=== PATIENT | female | born 1960 | race African-American/Black ===

== ENCOUNTER 2019-01-15 09:23 | Inpatient (IN) | payer OTHER ==
[2019-01-15 11:14] VITALS: BMI 27.4
--- NOTE | 2019-01-15 11:50 | HP ---
CIWA Score - Admission Criteria [facility]AS Guidelines: Admission for Medically Managed Detox: Requires at least one of the followin. CIWA greater than 12 2. Seizures within the past 24 hours 3. Delirium tremens within the past 24 hours 4. Hallucinations within the past 24 hours 5. Acute intervention needed for co occurring medical disorder 6. Acute intervention needed for co occurring psychiatric disorder 7. Severe withdrawal that cannot be handled at a lower level of care (continued vomiting, continued diarrhea, abnormal vital signs) requiring intravenous medication and/or fluids 8. Admission ROS S - HPI Allergies/Adverse Reactions: Allergies Allergy/AdvReac Type Severity Reaction Status Date / Time No Known Allergies Allergy Verified 01/15/19 10:56 History of Present Illness: pt here requesting rehab from crack cocaine use , first age of use 25 , longest sobriety x 5 years w/ NA/ AA / going [facility] , relapsed beginning of 2017 , current use 300-400 $ /day x 3 days /week , generally , Fridays , Saturdays, goes to [facility] 3 -4 months states not helpful for cessation of cocaine use . Latest use today . tobacco : w/ cocaine use PMHX : htn , scoliosis meds : unknown - see list PSHX : yani 06/16 DUB PSYch : denies . SHx : unemployed . Exam Limitations: No Limitations - Ebola screening Have you traveled outside of the country in the last 21 days: No Have you had contact with anyone from an Ebola affected area: No Do you have a fever: No - Review of Systems Constitutional: No Symptoms Reported EENT: reports: Other (reading glasses) Respiratory: reports: No Symptoms reported Cardiac: reports: No Symptoms Reported GI: reports: No Symptoms Reported : reports: No Symptoms Reported Musculoskeletal: reports: No Symptoms Reported Integumentary: reports: No Symptoms Reported Neuro: reports: Headache Endocrine: reports: No Symptoms Reported Psychiatric: reports: Orientated x3, Agitated Patient History - Smoking Cessation Smoking history: Current every day smoker Have you smoked in the past 12 months: Yes Aproximately how many cigarettes per day: 6 Cigars Per Day: 0 Hx Chewing Tobacco Use: No Initiated information on smoking cessation: No - Substances abused Crack Substance route: Inhalation Frequency: Daily Amount used: $200-300 Age of first use: 25 Date of last use: 01/15/19 Cocaine Substance route: Smoking Frequency: 3-6 times per week Amount used: 10 bags Age of first use: 25 Date of last use: 01/15/19 Family Disease History - Family Disease History Family Disease History: CA: Mother Admission Physical Exam [facility] - Vital Signs Vital Signs: Vital Signs - 24 hr 01/15/19 11:06 Temperature 98 F Pulse Rate 98 H Respiratory 16 Rate Blood Pressure 137/88 - Physical General Appearance: Yes: Mild Distress, Anxious HEENTM: Yes: EOMI, Hearing grossly Normal, Normocephalic, Normal Voice, Other ( partial lower dentures, upper dentures wears wig left supraorbital small lipoma) Respiratory: Yes: Chest Non-Tender, Lungs Clear, No Respiratory Distress, No Accessory Muscle Use Neck: Yes: No masses,lesions,Nodules, Trachea in good position Cardiology: Yes: Regular Rhythm, Regular Rate, S1, S2 Abdominal: Yes: Normal Bowel Sounds, Non Tender, Soft, Protuberent Musculoskeletal: Yes: Gait Steady Extremities: Yes: Normal Range of Motion, Non-Tender Neurological: Yes: Fully Oriented, Alert, Motor Strength 5/5, Normal Mood/Affect Integumentary: Yes: Warm - Diagnostic (1) Cocaine dependence Current Visit: Yes Status: Chronic Qualifiers: Substance use status: uncomplicated Qualified Code(s): F14.20 - Cocaine dependence, uncomplicated Breathalyzer - Breathalyzer Breathalyzer: 0 Urine Drug Screen - Test Device Lot number: [id number] Expiration date: 10/12/20 - Control Is test valid?: Yes - Results Drug screen NEGATIVE: No Urine drug screen results: MARK-Cocaine Inpatient Rehab Admission - Rehab Decision to Admit Inpatient rehab admission?: Yes - Initial Determination Are CD services needed?: Yes Free of communicable disease: Yes Not in need of hospitalization: Yes - Rehab Admission Criteria Previous failed treatment: Yes Poor recovery environment: Yes Comorbidities: No Lacks judgement: Yes Patient is meeting Inpatient Rehab admission criteria:: Yes
[2019-01-15] MEDS ORDERED: MAGNESIUM HYDROX 2400MG/30ML ORAL SUSPENSION 30 ML CUP PO PRN (11:54)
[2019-01-15] MEDS ORDERED: MAGNESIUM CITRATE 300 ML BOTTLE PO PRN (11:54)
[2019-01-15] MEDS ORDERED: ACETAMINOPHEN 325 MG TABLET (FP) PO PRN (11:54)
[2019-01-15] MEDS ORDERED: IBUPROFEN 400 MG TABLET (FP) PO PRN (11:54)
[2019-01-15] MEDS ORDERED: MENTHOL/PHENOL 1 EACH UD MM PRN (11:54)
[2019-01-15] MEDS ORDERED: guaiFENesin 200 MG/10 ML 10 ML UNIT-DOSE CUPS PO PRN (11:54)
[2019-01-15] MEDS ORDERED: MAG HYDROX/AL HYDROX/SIMETH 30 ML UNIT-DOSE CUP PO PRN (11:54)
[2019-01-15] MEDS ORDERED: P-EPHED 60MG/TRIPROLIDI 2.5MG TABLET PO PRN (11:54)
[2019-01-15] MEDS ORDERED: METOPROLOL SU PO SCH (12:15)
[2019-01-15] MEDS ORDERED: HYDROCHLOROTHIAZ PO SCH (12:15)
[2019-01-15] MEDS ORDERED: [UNRECOGNIZED DRUG - OTHER] PO SCH (12:15)
[2019-01-15] MEDS: ASPIRIN 81 MG CHEWABLE TABLETS PO SCH (13:32)
[2019-01-15] MEDS: HYDROCHLOROTHIAZIDE 12.5 MG CAPSULE (FP) PO SCH (13:32)
[2019-01-15] MEDS ORDERED: PT OWN MED DRAWER 7, Y5N ONE (15:08)
[2019-01-15] MEDS: THIAMINE HCL 100 MG TABLET (FP) PO SCH (21:06)
[2019-01-16] MEDS: HYDROCHLOROTHIAZIDE 12.5 MG CAPSULE (FP) PO SCH (10:11)
[2019-01-16] MEDS: PRENATAL VITAMINS W/ FOLIC ACID TABLET (FP) PO SCH (10:11)
[2019-01-16] MEDS: ASPIRIN 81 MG CHEWABLE TABLETS PO SCH (10:11)
[2019-01-16 15:01] LABS: URINE APPEARANCE CLEAR; URINE BILIRUBIN NEGATIVE (NEGATIVE); URINE COLOR YELLOW; URINE GLUCOSE (UA) NEGATIVE (NEGATIVE); URINE KETONE NEGATIVE (NEGATIVE); URINE LEUK ESTERASE NEGATIVE (NEGATIVE); URINE NITRITE NEGATIVE (NEGATIVE); URINE PROTEIN NEGATIVE (NEGATIVE); URINE UROBILINOGEN 0.2 mg/dL (0.2-1.0)
[2019-01-16 15:01] LABS: HEMATOCRIT 38.5 % (32.4-45.2); HEMOGLOBIN 12.4 GM/dL (10.7-15.3); MCH 27.9 pg (25.7-33.7); MCHC 32.2 g/dl (32.0-36.0); MEAN CELL VOLUME 86.6 fl (80-96); MEAN PLT VOLUME 8.2 fl (7.5-11.1); PLATELET COUNT 345 K/MM3 (134-434); RBC 4.45 M/mm3 (3.60-5.2); RDW 15.5 % (11.6-15.6); WHITE BLOOD COUNT 5.1 K/mm3 (4.0-10.0)
[2019-01-16 15:18] LABS: ALBUMIN 3.7 g/dl (3.4-5.0); BILIRUBIN,TOTAL 0.3 mg/dL (0.2-1); BLOOD UREA NITROGEN 23.5 mg/dL (7-18); CALCIUM 9.7 mg/dL (8.5-10.1); CREATININE 1.7 mg/dL (0.55-1.3); TOT PROT 7.1 g/dl (6.4-8.2)
[2019-01-16] MEDS ORDERED: cloNIDine HCL 0.1 MG TABLET PO ONE (15:49)
--- NOTE | 2019-01-16 15:53 | PN ---
S Progress Note (SOAP) Subjective: Patient with elevated BP, states that she has not take her BP medication for several months. Now symptomatic with headache and fatigue Objective: P/E General: appears to slightly distressed HEENT: PERRLA Lung:clear Heart: s1 s2 Neuro: no neurological deficits noted, CN 2-12 intact, hand hyperion essbase developer 5/5 equal bilaterally. 01/16/19 15:51 01/16/19 15:53 Vital Signs Period Temp Pulse Resp BP Sys/Forrester Pulse Ox Last 24 Hr 98.1 F 80-86 18-20 126-170/74-98 Assessment: HTN 01/16/19 15:52 Plan: Clonidine 0.1 stat dose ordered, will continue to monitor.
[2019-01-16] MEDS: THIAMINE HCL 100 MG TABLET (FP) PO SCH (21:44)
[2019-01-17] MEDS: ASPIRIN 81 MG CHEWABLE TABLETS PO SCH (10:05)
[2019-01-17] MEDS: HYDROCHLOROTHIAZIDE 12.5 MG CAPSULE (FP) PO SCH (10:05)
[2019-01-17] MEDS: PRENATAL VITAMINS W/ FOLIC ACID TABLET (FP) PO SCH (10:05)
[2019-01-17] MEDS: THIAMINE HCL 100 MG TABLET (FP) PO SCH (21:36)
[2019-01-18] MEDS ORDERED: PT OWN MED DRAWER 7, Y5N ONE (08:41)
--- NOTE | 2019-01-18 09:05 | PN ---
[facility] Progress Note Note: Vital Signs Temperature 97.7 F 01/18/19 07:09 Pulse Rate 81 01/18/19 07:09 Respiratory Rate 18 01/18/19 07:09 Blood Pressure 150/99 01/18/19 07:09 O2 Sat by Pulse Oximetry (%) Laboratory Last Values WBC 5.1 K/mm3 (4.0-10.0) 01/16/19 09:45 RBC 4.45 M/mm3 (3.60-5.2) 01/16/19 09:45 Hgb 12.4 GM/dL (10.7-15.3) 01/16/19 09:45 Hct 38.5 % (32.4-45.2) 01/16/19 09:45 MCV 86.6 fl (80-96) 01/16/19 09:45 MCH 27.9 pg (25.7-33.7) 01/16/19 09:45 MCHC 32.2 g/dl (32.0-36.0) 01/16/19 09:45 RDW 15.5 % (11.6-15.6) 01/16/19 09:45 Plt Count 345 K/MM3 (134-434) 01/16/19 09:45 MPV 8.2 fl (7.5-11.1) 01/16/19 09:45 Sodium 146 mmol/L (136-145) H 01/16/19 09:45 Potassium 4.0 mmol/L (3.5-5.1) 01/16/19 09:45 Chloride 106 mmol/L (98-107) 01/16/19 09:45 Carbon Dioxide 27 mmol/L (21-32) 01/16/19 09:45 Anion Gap 12 MMOL/L (8-16) 01/16/19 09:45 BUN 23.5 mg/dL (7-18) H 01/16/19 09:45 Creatinine 1.7 mg/dL (0.55-1.3) H 01/16/19 09:45 Est GFR (CKD-EPI)AfAm 38.40 01/16/19 09:45 Est GFR (CKD-EPI)NonAf 33.13 01/16/19 09:45 Random Glucose 109 mg/dL (74-106) H 01/16/19 09:45 Calcium 9.7 mg/dL (8.5-10.1) 01/16/19 09:45 Total Bilirubin 0.3 mg/dL (0.2-1) 01/16/19 09:45 AST 14 U/L (15-37) L 01/16/19 09:45 ALT 15 U/L (13-61) 01/16/19 09:45 Alkaline Phosphatase 101 U/L (45-117) 01/16/19 09:45 Total Protein 7.1 g/dl (6.4-8.2) 01/16/19 09:45 Albumin 3.7 g/dl (3.4-5.0) 01/16/19 09:45 Urine Color Yellow 01/16/19 10:30 Urine Appearance Clear 01/16/19 10:30 Urine pH 6.0 (5.0-8.0) 01/16/19 10:30 Ur Specific [place] 1.012 (1.010-1.035) 01/16/19 10:30 Urine Protein Negative (NEGATIVE) 01/16/19 10:30 Urine Glucose (UA) Negative (NEGATIVE) 01/16/19 10:30 Urine Ketones Negative (NEGATIVE) 01/16/19 10:30 Urine Blood Negative (NEGATIVE) 01/16/19 10:30 Urine Nitrite Negative (NEGATIVE) 01/16/19 10:30 Urine Bilirubin Negative (NEGATIVE) 01/16/19 10:30 Urine Urobilinogen 0.2 mg/dL (0.2-1.0) 01/16/19 10:30 Ur Leukocyte Esterase Negative (NEGATIVE) 01/16/19 10:30 RPR Titer Nonreactive (NONREACTIVE) 01/16/19 09:45 Labs reviewed continue to monitor
[2019-01-18] MEDS: ASPIRIN 81 MG CHEWABLE TABLETS PO SCH (09:58)
[2019-01-18] MEDS: HYDROCHLOROTHIAZIDE 12.5 MG CAPSULE (FP) PO SCH (09:59)
[2019-01-18] MEDS: PRENATAL VITAMINS W/ FOLIC ACID TABLET (FP) PO SCH (09:59)
[2019-01-18] MEDS: TOLNAFTATE 1% CREAM 15 GM TUBE TP SCH ×2 (10:01→21:48)
[2019-01-18] MEDS: THIAMINE HCL 100 MG TABLET (FP) PO SCH (21:48)
[2019-01-19] MEDS: ASPIRIN 81 MG CHEWABLE TABLETS PO SCH (10:24)
[2019-01-19] MEDS: HYDROCHLOROTHIAZIDE 12.5 MG CAPSULE (FP) PO SCH (10:24)
[2019-01-19] MEDS: PRENATAL VITAMINS W/ FOLIC ACID TABLET (FP) PO SCH (10:24)
[2019-01-19] MEDS: TOLNAFTATE 1% CREAM 15 GM TUBE TP SCH ×2 (10:25→21:47)
[2019-01-19] MEDS: THIAMINE HCL 100 MG TABLET (FP) PO SCH (21:46)
[2019-01-19] MEDS: MELATONIN 5 MG TABLETS PO PRN (21:46)
[2019-01-20] MEDS ORDERED: PT OWN MED DRAWER 7, Y5N ONE (08:34)
[2019-01-20] MEDS: ASPIRIN 81 MG CHEWABLE TABLETS PO SCH (10:12)
[2019-01-20] MEDS: TOLNAFTATE 1% CREAM 15 GM TUBE TP SCH ×2 (10:12→21:40)
[2019-01-20] MEDS: PRENATAL VITAMINS W/ FOLIC ACID TABLET (FP) PO SCH (10:12)
[2019-01-20] MEDS: HYDROCHLOROTHIAZIDE 12.5 MG CAPSULE (FP) PO SCH (10:12)
[2019-01-20] MEDS: MELATONIN 5 MG TABLETS PO PRN (21:15)
[2019-01-20] MEDS: THIAMINE HCL 100 MG TABLET (FP) PO SCH (21:40)
[2019-01-21] MEDS ORDERED: PT OWN MED DRAWER 7, Y5N ONE (09:12)
[2019-01-21] MEDS: PRENATAL VITAMINS W/ FOLIC ACID TABLET (FP) PO SCH (10:16)
[2019-01-21] MEDS: HYDROCHLOROTHIAZIDE 12.5 MG CAPSULE (FP) PO SCH (10:16)
[2019-01-21] MEDS: ASPIRIN 81 MG CHEWABLE TABLETS PO SCH (10:16)
[2019-01-21] MEDS: TOLNAFTATE 1% CREAM 15 GM TUBE TP SCH ×2 (10:17→21:50)
[2019-01-21] MEDS: MELATONIN 5 MG TABLETS PO PRN (21:50)
[2019-01-21] MEDS: THIAMINE HCL 100 MG TABLET (FP) PO SCH (21:50)
--- NOTE | 2019-01-22 09:38 | CONSULT ---
[facility] Psychiatric Consult - Data Date of interview: 01/22/19 Admission source: Self-referred Identifying data: Mr Joseph is a 58 years old Black female, mother of 2 children, unemployed receiving public assistance, domiciled seeking admitted from [facility] for cocaine Substance Abuse History: Reports history of cocaine use. Refer to addiction counselor's summary for further information Medical History: Significant for hypertension, scoliosis and history of gynesurgery for total abdominal hysterectomy in 2013. Smokes 6 cigarettes daily Psychiatric History: Reports that her first psychiatric contact was in 2011 when she was diagnosed with depression by a staff psychiatrist at [facility] in [place], [place]. Reports that depression stemmed from of family members(sister in 2008, adopted mother 2004) and other psychosocial stressors.Told appeals writer that she was prescribed Trazadone and Lexapro which she stopped taking in 2014. Denies previous psychiatric hospitalization or suicidal attempt. At present, denies experiencing depressive symptoms, S/H ideations. However, reports sleeping poorly Physical/Sexual Abuse/Trauma History: Denies history of emotional, physical or sexual abuse as well as DV relationship Additional Comment: Reports history of 5 previous arrests including one felony conviction. denies being on parole/probation Mental Status Exam - Mental Status Exam Alert and Oriented to: Time, Person Cognitive Function: Fair Patient Appearance: Well Groomed Mood: Hopeful, Euthymic Patient Behavior: Cooperative Speech Pattern: Clear Voice Loudness: Normal Thought Process: Intact, Goal Oriented Hallucinations: Denies Suicidal Ideation: Denies Homicidal Ideation: Denies Insight/Judgement: Fair Sleep: Poorly Appetite: Good Muscle strength/Tone: Normal Gait/Station: Normal Psychiatric Findings - Problem List ([place] 1, 2,3) (1) Depressive disorder Current Visit: Yes Status: Chronic (2) MDD (major depressive disorder) Current Visit: Yes Status: Ruled-out (3) Substance-induced sleep disorder Current Visit: Yes Status: Acute (4) Cocaine dependence Current Visit: Yes Status: Acute Qualifiers: Substance use status: uncomplicated Qualified Code(s): F14.20 - Cocaine dependence, uncomplicated (5) Nicotine dependence Current Visit: Yes Status: Chronic (6) HTN (hypertension) Current Visit: Yes Status: Chronic (7) Scoliosis Current Visit: Yes Status: Chronic - Initial Treatment Plan Initial Treatment Plan: 1) Start Belsomra 10 mg po HS prn fr insomnia. 2) Continue inpatient rehabilitation
[2019-01-22] MEDS: PRENATAL VITAMINS W/ FOLIC ACID TABLET (FP) PO SCH (09:56)
[2019-01-22] MEDS: HYDROCHLOROTHIAZIDE 12.5 MG CAPSULE (FP) PO SCH (09:56)
[2019-01-22] MEDS: ASPIRIN 81 MG CHEWABLE TABLETS PO SCH (09:56)
[2019-01-22] MEDS: TOLNAFTATE 1% CREAM 15 GM TUBE TP SCH ×2 (09:58→22:25)
[2019-01-22] MEDS: SUVOREXANT 10 MG TABLET PO PRN (21:19)
[2019-01-22] MEDS: THIAMINE HCL 100 MG TABLET (FP) PO SCH (21:20)
[2019-01-23] MEDS: ASPIRIN 81 MG CHEWABLE TABLETS PO SCH (10:11)
[2019-01-23] MEDS: TOLNAFTATE 1% CREAM 15 GM TUBE TP SCH ×2 (10:12→21:18)
[2019-01-23] MEDS: PRENATAL VITAMINS W/ FOLIC ACID TABLET (FP) PO SCH (10:12)
[2019-01-23] MEDS: HYDROCHLOROTHIAZIDE 12.5 MG CAPSULE (FP) PO SCH (10:12)
[2019-01-23] MEDS: THIAMINE HCL 100 MG TABLET (FP) PO SCH (21:17)
[2019-01-23] MEDS: SUVOREXANT 10 MG TABLET PO PRN (21:19)
[2019-01-24] MEDS ORDERED: PT OWN MED DRAWER 7, Y5N ONE (09:25)
[2019-01-24] MEDS: TOLNAFTATE 1% CREAM 15 GM TUBE TP SCH ×2 (10:09→21:57)
[2019-01-24] MEDS: ASPIRIN 81 MG CHEWABLE TABLETS PO SCH (10:10)
[2019-01-24] MEDS: HYDROCHLOROTHIAZIDE 12.5 MG CAPSULE (FP) PO SCH (10:10)
[2019-01-24] MEDS: PRENATAL VITAMINS W/ FOLIC ACID TABLET (FP) PO SCH (10:10)
[2019-01-24] MEDS: THIAMINE HCL 100 MG TABLET (FP) PO SCH (21:15)
[2019-01-24] MEDS: SUVOREXANT 10 MG TABLET PO PRN (21:15)
[2019-01-25] MEDS: PRENATAL VITAMINS W/ FOLIC ACID TABLET (FP) PO SCH (10:01)
[2019-01-25] MEDS: ASPIRIN 81 MG CHEWABLE TABLETS PO SCH (10:01)
[2019-01-25] MEDS: HYDROCHLOROTHIAZIDE 12.5 MG CAPSULE (FP) PO SCH (10:01)
[2019-01-25] MEDS: TOLNAFTATE 1% CREAM 15 GM TUBE TP SCH ×2 (10:01→21:42)
[2019-01-25] MEDS ORDERED: COLLOIDAL OATMEAL 1 BAR EACH TP PRN (10:44)
--- NOTE | 2019-01-25 16:05 | PN ---
[facility] Progress Note Note: Psychiatric nurse practitioner note: Belsomra 10mg renewed X3 days.
[2019-01-25] MEDS ORDERED: PT OWN MED DRAWER 7, Y5N ONE (19:47)
[2019-01-25] MEDS: THIAMINE HCL 100 MG TABLET (FP) PO SCH (21:42)
[2019-01-25] MEDS: SUVOREXANT 10 MG TABLET PO PRN (21:43)
[2019-01-26] MEDS: ASPIRIN 81 MG CHEWABLE TABLETS PO SCH (09:59)
[2019-01-26] MEDS: TOLNAFTATE 1% CREAM 15 GM TUBE TP SCH ×2 (10:00→21:34)
[2019-01-26] MEDS: PRENATAL VITAMINS W/ FOLIC ACID TABLET (FP) PO SCH (10:00)
[2019-01-26] MEDS: HYDROCHLOROTHIAZIDE 12.5 MG CAPSULE (FP) PO SCH (10:00)
[2019-01-26] MEDS: THIAMINE HCL 100 MG TABLET (FP) PO SCH (21:32)
[2019-01-26] MEDS: SUVOREXANT 10 MG TABLET PO PRN (21:34)
[2019-01-27] MEDS: ASPIRIN 81 MG CHEWABLE TABLETS PO SCH (10:17)
[2019-01-27] MEDS: PRENATAL VITAMINS W/ FOLIC ACID TABLET (FP) PO SCH (10:17)
[2019-01-27] MEDS: TOLNAFTATE 1% CREAM 15 GM TUBE TP SCH ×2 (10:17→22:06)
[2019-01-27] MEDS: HYDROCHLOROTHIAZIDE 12.5 MG CAPSULE (FP) PO SCH (10:17)
[2019-01-27] MEDS: THIAMINE HCL 100 MG TABLET (FP) PO SCH (22:05)
[2019-01-28 07:04] VITALS: TEMP 97.9
--- NOTE | 2019-01-28 08:33 | DS ---
[facility] Rehab Discharge Summary - [facility] Rehab Discharge Summary Admission Date: 01/15/19 Discharge Date: 01/28/19 - History Present History: Cocaine dependence Additional Comments: Pt is a 58 y/o female admitted to rehab and discharging today. Pertinent Past History: Scoliosis HTN - Discharge Physical Exam Vital Signs: Vital Signs Temperature 97.9 F 01/28/19 07:03 Pulse Rate 82 01/28/19 07:03 Respiratory Rate 18 01/28/19 07:03 Blood Pressure 128/86 01/28/19 07:03 O2 Sat by Pulse Oximetry (%) Alert o x 3 nad oob ambulating with steady gait Cardiac:s1 s2,rrr lungs:cta,karmen Extremities/Skin:No edema, no cyanosis, Full ROM, skin intact Pertinent Admission Physical Exam Findings: Laboratory Tests 01/16/19 01/16/19 01/16/19 09:45 09:45 09:45 WBC 5.1 RBC 4.45 Hgb 12.4 Hct 38.5 MCV 86.6 MCH 27.9 MCHC 32.2 RDW 15.5 Plt Count 345 MPV 8.2 Sodium 146 H Potassium 4.0 Chloride 106 Carbon Dioxide 27 Anion Gap 12 BUN 23.5 H Creatinine 1.7 H Est GFR (CKD-EPI)AfAm 38.40 Est GFR (CKD-EPI)NonAf 33.13 Random Glucose 109 H Calcium 9.7 Total Bilirubin 0.3 AST 14 L ALT 15 Alkaline Phosphatase 101 Total Protein 7.1 Albumin 3.7 Urine Color Urine Appearance Urine pH Ur Specific [place] Urine Protein Urine Glucose (UA) Urine Ketones Urine Blood Urine Nitrite Urine Bilirubin Urine Urobilinogen Ur Leukocyte Esterase RPR Titer Nonreactive TB (QFT) Incubation TB Test (QFT) Nil TB Test (QFT) Mitogen TB Test (QFT) Antigen TB Test (QFT) TB Positive Criteria 01/16/19 01/16/19 09:45 10:30 WBC RBC Hgb Hct MCV MCH MCHC RDW Plt Count MPV Sodium Potassium Chloride Carbon Dioxide Anion Gap BUN Creatinine Est GFR (CKD-EPI)AfAm Est GFR (CKD-EPI)NonAf Random Glucose Calcium Total Bilirubin AST ALT Alkaline Phosphatase Total Protein Albumin Urine Color Yellow Urine Appearance Clear Urine pH 6.0 Ur Specific [place] 1.012 Urine Protein Negative Urine Glucose (UA) Negative Urine Ketones Negative Urine Blood Negative Urine Nitrite Negative Urine Bilirubin Negative Urine Urobilinogen 0.2 Ur Leukocyte Esterase Negative RPR Titer TB (QFT) Incubation TB Test (QFT) Nil 0.03 TB Test (QFT) Mitogen 8.73 TB Test (QFT) Antigen 0.03 TB Test (QFT) Negative TB Positive Criteria - Treatment Discharge Condition: Discharge condition good Hospital Course: Rehabilitated safely and responded well Accepted CD aftercare referral - Medication Discharge Medications: Ambulatory Orders Aspirin [ASA -] 81 mg PO DAILY 01/15/19 Diclofenac Sodium 50 mg 01/15/19 Diclofenac Sodium 50 mg PO PRN PRN 01/15/19 Metoprolol ER-Hctz 100-12.5 mg 01/15/19 Metoprolol Acosta/Hydrochlorothiaz [Metoprolol ER-Hctz 100-12.5 mg] 1 each PO DAILY 01/15/19 - Medication-Assisted Treatment (MAT) Medication-Assisted Treatment (MAT): No - Discharge Instructions Diet, activity, other medical instructions: Diet:Low salt diet Activity: oob ad duran Other medical instructions:Follow up with CD aftercare at [facility] Follow up with primary care provider, Dr. Cole at [address] [place] [address] within 1-2 weeks after discharge. - Diagnosis (1) Cocaine dependence Status: Chronic Qualifiers: Substance use status: uncomplicated Qualified Code(s): F14.20 - Cocaine dependence, uncomplicated (2) HTN (hypertension) Status: Chronic Qualifiers: Hypertension type: essential hypertension Qualified Code(s): I10 - Essential (primary) hypertension (3) Nicotine dependence Status: Chronic Qualifiers: Nicotine product type: cigarettes Substance use status: uncomplicated Qualified Code(s): F17.210 - Nicotine dependence, cigarettes, uncomplicated (4) Scoliosis Status: Chronic Qualifiers: Spinal region: unspecified - Follow-up Referral Minutes to complete discharge: 20 - AMA Did Patient Leave Against Medical Advice: No
[2019-01-28] MEDS ORDERED: PT OWN MED DRAWER 7, Y5N ONE (08:49)
[2019-01-28] MEDS: HYDROCHLOROTHIAZIDE 12.5 MG CAPSULE (FP) PO SCH (09:03)
[2019-01-28] MEDS: PRENATAL VITAMINS W/ FOLIC ACID TABLET (FP) PO SCH (09:03)
[2019-01-28 09:04] VITALS: BP 108/76; PULSE 90
[2019-01-28] MEDS: ASPIRIN 81 MG CHEWABLE TABLETS PO SCH (09:04)
[2019-01-28] MEDS: TOLNAFTATE 1% CREAM 15 GM TUBE TP SCH (09:04)
== END 2019-01-28 09:06 | disposition home or self-care (01) | DRG 772 ==
LOC: YASAS 09:23 → Y3E 12:13
PROVIDERS: ADMIT Neuromusculoskeletal Medicine & OMM; ATTEND Neuromusculoskeletal Medicine & OMM
PROC: HZ42ZZZ Group Counseling for Substance Abuse Treatment, Cognitive-Behavioral (ICD-10-PCS; principal; 2019-01-15)
DX: F14.20 Cocaine dependence, uncomplicated (principal); F17.210 Nicotine dependence, cigarettes, uncomplicated; F19.282 Other psychoactive substance dependence with psychoactive substance-induced sleep disorder; F32.9 Major depressive disorder, single episode, unspecified; I10 Essential (primary) hypertension; M41.9 Scoliosis, unspecified
CPT/HCPCS: 36415; 80053; 81003; 85027; 86480; 86593; J0735

== ENCOUNTER 2020-01-07 20:34 | Observation (INO) | payer OTHER ==
--- NOTE | 2020-01-07 20:57 | PDOC ---
Attending Attestation - Resident Resident Name: AlizaSrikanth haider - ED Attending Attestation I have performed the following: I have examined & evaluated the patient, The case was reviewed & discussed with the resident, I agree w/resident's findings & plan - HPI HPI: 01/07/20 20:56 see resident hpi - Physicial Exam PE: 01/07/20 20:56 see resident exam - Medical Decision Making 01/08/20 00:16 59-year-old female with stage IV cancer, primary unknown due to patient's poor historian status with nausea and vomiting after running out of pain medication Patient has had multiple episodes of vomiting and abdominal cramping which she states is chronic Dilaudid and Zofran given with some relief Due to hyponatremia and are known baseline medications will admit for symptomatic management and IV hydration Discharge - Discharge Information Problems reviewed: Yes Clinical Impression/Diagnosis: Metastatic cancer, Pain Condition: Fair - Follow up/Referral - Patient Discharge Instructions - Post Discharge Activity
[2020-01-07] MEDS ORDERED: HYDROmorphone HCL CARPU-JECT 2 MG/1 ML DISP.SYRIN IVPUSH ONE (21:09)
[2020-01-07] MEDS ORDERED: ONDANSETRON 4 MG/2 ML VIAL IVPB ONE (21:09)
--- NOTE | 2020-01-07 21:19 | PDOC ---
History of Present Illness - General Chief Complaint: Pain Stated Complaint: persistent pain - History of Present Illness Initial Comments: HPI Pt is a 59 yo F with PMH of HTN, Fibroids (s/p hysterectomy), and Stage 4 Cancer (likely ovarian?) who is arriving today with complaint generalized pain (worse in lower abdomen/lower back). Pt describes pain as constant and 10/10. This pain has been present for the last 1-2 months since being discharged from [facility] at the end of October. The pt's pain worsened acutely in the last two days as she ran out of her pain medications. She has had associated nausea and 4 episodes of non-bloody, bilious emesis since the morning and one similar episode in the ED. Pt reports receiving cancer treatment every month at [facility], which sounds like radiation therapy. The pt does not recall her PCP or Oncogologist at this time. Per pt discharge summary from admission in October, her Oncologist may be Dr. Chirag oHu. Pt reports weight loss since her cancer but no significant weight loss acutely. Pt denies fevers, chills, weakness, chest pain, SOB, recent cough, diarrhea, constipation, dysuria, urinary frequency, or skin changes. PMHX: as in HPI PSHX: see below Meds: n/a Allergies: NKDA Tob: denies Etoh: denies Rec drugs: denies PCP: could not recall ROS GENERAL/CONSTITUTIONAL: No fever or chills. No weakness. HEAD, EYES, EARS, NOSE AND THROAT: No change in vision. No ear pain or dischar ge. No sore throat. CARDIOVASCULAR: No chest pain or shortness of breath RESPIRATORY: No cough, wheezing, or hemoptysis. GASTROINTESTINAL: No nausea, vomiting, diarrhea or constipation. GENITOURINARY: No dysuria, frequency, or change in urination. MUSCULOSKELETAL: No joint or muscle swelling or pain. No neck or back pain. SKIN: No rash NEUROLOGIC: No headache, vertigo, loss of consciousness, or change in strength/sensation. ENDOCRINE: No increased thirst. No abnormal weight change HEMATOLOGIC/LYMPHATIC: No anemia, easy bleeding, or history of blood clots. ALLERGIC/IMMUNOLOGIC: No hives or skin allergy. PE GENERAL: Awake, alert, and fully oriented, in no acute distress HEAD: No signs of trauma, normocephalic, atraumatic EYES: PERRLA, EOMI, sclera anicteric, conjunctiva clear ENT: Auricles normal inspection, hearing grossly normal, nares patent, oropharynx clear withoutexudates. Moist mucosa NECK: Normal ROM, supple, no lymphadenopathy, JVD, or masses LUNGS: No distress, speaks full sentences, clear to auscultation bilaterally HEART: Tachycardic and regular rhythm, normal S1 and S2, no murmurs, rubs or gallops, peripheral pulses normal and equal bilaterally. ABDOMEN: Soft, non distended, normoactive bowel sounds. Tenderness to palpation of lower abdomen with guarding, no rebound. EXTREMITIES : Normal inspection, moving all extremities equally and spontaneously. No clubbing or cyanosis. NEUROLOGICAL: Cranial nerves II through XII grossly intact. Normal speech, no focal sensorimotor deficits SKIN: Warm, Dry, normal turgor, no rashes or lesions noted 01/07/20 21:25 01/07/20 21:28 01/07/20 21:42 01/07/20 21:49 Past History - Medical History Allergies/Adverse Reactions: Allergies Allergy/AdvReac Type Severity Reaction Status Date / Time No Known Allergies Allergy Verified 01/07/20 21:02 Home Medications: Ambulatory Orders Docusate Sodium [Colace] 100 mg PO BID 30 Days #60 capsule 11/05/19 Ferrous Sulfate 325 mg PO DAILY #30 tablet 11/05/19 Pantoprazole Sodium [Protonix] 40 mg PO DAILY #30 tablet. 11/05/19 oxyCODONE HCL [Oxycodone HCl] 5 mg PO Q6H PRN #20 tablet MDD 4 tab 11/05/19 oxyCODONE HCL [Roxicodone -] 5 mg PO Q6H #20 tablet MDD 4 tablets (20mg) 11/05/19 Anemia: Yes Asthma: No Cancer: No Cardiac Disorders: No CVA: No COPD: No CHF: No Dementia: No Diabetes: No GI Disorders: Yes (acid reflux) Disorders: No HTN: Yes Hypercholesterolemia: No Kidney Stones: No Liver Disease: No Seizures: No Thyroid Disease: No - Surgical History Abdominal Surgery: Yes (partial hysterectomy) Appendectomy: No Cardiac Surgery: No Cholecystectomy: No Lung Surgery: No Neurologic Surgery: No Orthopedic Surgery: No - Reproductive History PID: No - Psycho-Social/Smoking History Smoking History: Never smoked Have you smoked in the past 12 months: Yes Number of Cigarettes Smoked Daily: 6 Cigars Per Day: 0 Information on smoking cessation initiated: No - Substance Abuse Hx (Audit-C & DAST Scrn) How often the patient has a drink containing alcohol: Never Score: In Men: 4 or > Positive; In Women: 3 or > Positive: 0 Screen Result (Pos requires Nsg. Audit-10AR): Negative In the last yr the pt used illegal drug/Rx for NonMed reason: No Score: Yes response is considered Positive: 0 Screen Result (Positive result requires Nsg. DAST-10): Negative *Physical Exam - Vital Signs Last Vital Signs Temp Pulse Resp BP Pulse Ox 97.8 F 110 H 20 157/97 100 01/07/20 20:45 01/07/20 20:45 01/07/20 20:45 01/07/20 20:45 01/07/20 20:45 Medical Decision Making - Medical Decision Making 01/07/20 21:49 EKG Pt is a 59 yo F with PMH of HTN, Fibroids (s/p hysterectomy), and Stage 4 Cancer (likely ovarian?). Patient is arriving today with complaint of severe generalized pain (worse in lower abdomen/lower back) with associated nausea and vomiting. Will give dilaudid and zofran. Will get CXR, EKG, CBC, CMP, and coags. Discharge - Discharge Information Problems reviewed: Yes Clinical Impression/Diagnosis: Metastatic cancer, Pain Condition: Fair - Follow up/Referral - Patient Discharge Instructions - Post Discharge Activity
[2020-01-07] MEDS ORDERED: HYDROmorphone HCl 2 MG/ML VIAL ONE (22:42)
[2020-01-07 23:27] LABS: INR 0.96 (0.83-1.09); PROTHROMBIN TIME (PATIENT) 11.3 SEC (9.7-13.0)
[2020-01-07 23:30] LABS: BASO % 1.1 % (0-2.0); EOS % 0.4 % (0-4.5); HEMOGLOBIN 11.7 GM/dL (10.7-15.3); LYMPH % 10.3 % (8-40); MCH 25.4 pg (25.7-33.7); MCHC 32.6 g/dl (32.0-36.0); MEAN CELL VOLUME 78.1 fl (80-96); MEAN PLT VOLUME 8.4 fl (7.5-11.1); MONO % 6.6 % (3.8-10.2); NEUT % 81.6 % (42.8-82.8); PLATELET COUNT 346 K/MM3 (134-434); RBC 4.61 M/mm3 (3.60-5.2); RDW 25.9 % (11.6-15.6); WHITE BLOOD COUNT 4.1 K/mm3 (4.0-10.0)
[2020-01-07] MEDS ORDERED: LACTATED RINGERS SOLUTION 1000 ML INFUS.BAG IV ONE (23:37)
[2020-01-07] MEDS ORDERED: FAMOTIDINE 20 MG/50 ML IVPB 20 MG/50 ML MG IVPB ONE (23:37)
[2020-01-08] MEDS ORDERED: FAMOTIDINE 20 MG/50 ML IVPB 20 MG/50 ML MG IVPB ONE (00:27)
[2020-01-08 01:24] LABS: ADD RBC MORPHOLOGY YES
[2020-01-08 01:25] LABS: ANISOCYTOSIS 2+
[2020-01-08 01:27] LABS: MACROCYTOSIS 1+
[2020-01-08] MEDS ORDERED: ONDANSETRON 4 MG/2 ML VIAL IVPUSH PRN (01:28)
[2020-01-08 01:29] LABS: PLATELET ESTIMATE ADEQUATE
--- NOTE | 2020-01-08 01:39 | HP ---
CHIEF COMPLAINT:generalized pain to abdomen and back associated with nausea PCP: patient unable to tell me Oncologist: patient unable to tell me, sees him in the [place], as per records on prior hospitalization was referred to Dr. Karlos Ribeiro HISTORY OF PRESENT ILLNESS: 59 year old thin appearing female with a past medical history of hypertension, f ibroids (s/p hysterectomy), and ovarian cancer currently receiving chemotherapy(last treatment 5 days ago) who presented today with complaints of generalized pain in the lower abdomen and lower back which was described as severe and associated with nausea. She reports pain has worsened in the last two days as she ran out of her pain medications. She has associated nausea and 4 episodes of non-bloody, bilious emesis since the morning and one similar episode in the ED. Patient reports receiving chemotherapy every month at [facility] reporting last treatment was last . She does not recall her PCP or Oncologist.She reports weight loss since her cancer diagnosis but no significant weight loss acutely. She denied fever, chills, weakness, chest pain, SOB, cough, diarrhea, constipation, dysuria, urinary frequency, or skin changes. In the ER labs notable for creatinine 1.4, calcium 10.3, RDW 25.9, MCV 78.1 and MCH 25.4. She received IV dilaudid for pain control , IV pepcid and zofran with some relief and she was started on IVF LR.She is being admitted to observation to [facility] for pain control and IV hydration. Recent Travel: no Past Medical History: hypertension fibroids Stage 4 cancer(ovarian) Past Surgical History: hysterectomy Social History: Smoking:yes smokes 2 cigarettes/day Alcohol:no Drugs: no Family History Mother- alive, leukemia-in remission Father , had cancer Allergies No Known Allergies Allergy (Verified 01/07/20 21:02) HOME MEDICATIONS: Home Medications Medication Instructions Recorded Docusate Sodium [Colace] 100 mg PO BID 30 Days #60 capsule 11/05/19 Ferrous Sulfate 325 mg PO DAILY #30 tablet 11/05/19 Pantoprazole Sodium [Protonix] 40 mg PO DAILY #30 tablet. 11/05/19 oxyCODONE HCL [Oxycodone HCl] 5 mg PO Q6H PRN #20 tablet MDD 4 11/05/19 tab oxyCODONE HCL [Roxicodone -] 5 mg PO Q6H #20 tablet MDD 4 11/05/19 tablets (20mg) REVIEW OF SYSTEMS CONSTITUTIONAL: Absent: fever, chills, diaphoresis, generalized weakness, malaise, loss of appetite, weight loss HEENT: Absent: rhinorrhea, nasal congestion, throat pain, throat swelling, difficulty swallowing, mouth swelling, ear pain, eye pain, visual changes CARDIOVASCULAR: Absent: chest pain, syncope, palpitations, irregular heart rate, lightheadedness, peripheral edema RESPIRATORY: Absent: cough, shortness of breath, dyspnea with exertion, orthopnea, wheezing, stridor, hemoptysis GASTROINTESTINAL: Absent: abdominal pain, abdominal distension, nausea, vomiting, diarrhea, constipation, melena, hematochezia GENITOURINARY: Absent: dysuria, frequency, urgency, hesitancy, hematuria, flank pain, genital pain MUSCULOSKELETAL: Absent: myalgia, arthralgia, joint swelling, back pain, neck pain SKIN: Absent: rash, itching, pallor HEMATOLOGIC/IMMUNOLOGIC: Absent: easy bleeding, easy bruising, lymphadenopathy, frequent infections ENDOCRINE: Absent: unexplained weight gain, unexplained weight loss, heat intolerance, cold intolerance NEUROLOGIC: Absent: headache, focal weakness or paresthesias, dizziness, unsteady gait, seizure, mental status changes, bladder or bowel incontinence PSYCHIATRIC: Absent: anxiety, depression, suicidal or homicidal ideation, hallucinations. PHYSICAL EXAMINATION Vital Signs - 24 hr 01/07/20 20:45 Temperature 97.8 F Pulse Rate 110 H Respiratory 20 Rate Blood Pressure 157/97 O2 Sat by Pulse 100 Oximetry (%) General patient appears in pain and anxious Vital signs reviewed afebrile heart rate noted Neuro no focal deficits Lungs CTA nonlabored breathing effort no rales no wheezing no use of accessory muscles Hearts s1s2 rate regular and tachycardic Abdomen nondistended nontender Extremities warm to touch no pitting edema no cyanosis Skin nail beds and lips pink Laboratory Results - last 24 hr 01/07/20 01/07/20 01/07/20 22:30 22:30 22:30 WBC 4.1 RBC 4.61 Hgb 11.7 Hct 36.0 D MCV 78.1 L MCH 25.4 L MCHC 32.6 RDW 25.9 H Plt Count 346 D MPV 8.4 D Absolute Neuts (auto) 3.3 Neutrophils % 81.6 Lymphocytes % 10.3 Monocytes % 6.6 Eosinophils % 0.4 Basophils % 1.1 Nucleated RBC % 0 Hypochromia 1+ Platelet Estimate Adequate Platelet Comment No clotting detected Poikilocytosis 1+ Anisocytosis 2+ Microcytosis 1+ Macrocytosis 1+ Stomatocytes Occasional Fragmented RBCs Few PT with INR 11.30 INR 0.96 PTT (Actin FS) 34.0 Sodium Cancelled Potassium Cancelled Chloride Cancelled Carbon Dioxide Cancelled Anion Gap Cancelled BUN Cancelled Creatinine Cancelled Est GFR (CKD-EPI)AfAm Cancelled Est GFR (CKD-EPI)NonAf Cancelled Random Glucose Cancelled Calcium Cancelled Total Bilirubin Cancelled AST Cancelled ALT Cancelled Alkaline Phosphatase Cancelled Total Protein Cancelled Albumin Cancelled Blood Type Antibody Screen 01/07/20 22:30 WBC RBC Hgb Hct MCV MCH MCHC RDW Plt Count MPV Absolute Neuts (auto) Neutrophils % Lymphocytes % Monocytes % Eosinophils % Basophils % Nucleated RBC % Hypochromia Platelet Estimate Platelet Comment Poikilocytosis Anisocytosis Microcytosis Macrocytosis Stomatocytes Fragmented RBCs PT with INR INR PTT (Actin FS) Sodium Potassium Chloride Carbon Dioxide Anion Gap BUN Creatinine Est GFR (CKD-EPI)AfAm Est GFR (CKD-EPI)NonAf Random Glucose Calcium Total Bilirubin AST ALT Alkaline Phosphatase Total Protein Albumin Blood Type Cancelled Antibody Screen Cancelled Diagnostics: CT scan of abdomen (done on prior admission 10/2019) -ascites, mildly enlarged retroperitoneal LN (~1cm), 0.5cm lesion Left hepatic lobe, 1.7 x 1cm soft tissue peritoneal implant w/in cul-de-sac, multiple partially necrotic mesenteric mass lesions (largest 9 x6.3cm), b/l renal atrophy, multilevel renal cortical scarring Transvaginal US (done on prior admission 10/2019) L Ovary or Ovarian adnexal mass 3.3 x 2.7cm ASSESSMENT/PLAN: In summary this is a 59 year old female with a past medical history of hypertension, fibroids (s/p hysterectomy), and ovarian cancer (undergoing chemotherapy in the [place], as per prior records was referred to Oncologist- Dr. Karlos Ribeiro) who presented with complaints of generalized pain in the lower abdomen and lower back which was described as severe associated with nausea. 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 She received IV dilaudid for pain control , IV pepcid and IV zofran with some relief and she was started on IVF LR. She is being admitted to observation to [facility] for pain control and IV hydration. #1 Severe Generalized Pain/ Nausea in the Setting of Ovarian Cancer tachycardic and BP elevated calcium level 10.3 reports receives chemotherapy (last treatment was last ) --IV morphine 2 mg q4hr prn --Zofran 4 mg IV prn --IVF LR @ 100cc/hr --Oncology- Dr. Morrell consulted #2 Hypertension uncontrolled likely elevated in the setting of pain #3 Tachycardia compenstaory in the setting of pain c/w pain control and IV fluids #3 Rule Out COVID follow up on COVID test maintain strict isolation precautions for droplet and contact #4 Hx of Iron Deficiency Anemia c/w ferrous sulfate evaluated by [facility] on prior admission EGD/Colonoscopy showed some hiatal hernia 2cm but doodenal mucosa normal, esophagus normal with pathology sent #5 MARTIN creatinine 1.4 (ranges bewteen 1.2-1.7) c/w IV fluids #6 Hypercalcemia likely related to malignancy continue to monitor DVT Prophylaxis high risk lovenox 40 mg once daily FEN IV LR @ 100cc/hr BMP daily, replete electrolytes as needed clear liquid diet Family Medical History Family History: As Documented Visit type - Emergency Visit Emergency Visit: Yes ED Registration Date: 01/07/20 Care time: The patient presented to the Emergency Department on the above date and was hospitalized for further evaluation of their emergent condition. - New Patient This patient is new to me today: Yes Date on this admission: 01/08/20 - Critical Care Critical Care patient: No
[2020-01-08] MEDS ORDERED: MORPHINE SULFATE 2 MG/ML VIAL ONE ×2 (02:12→07:05)
[2020-01-08] MEDS: MORPHINE SULFATE 2 MG/ML VIAL IVPUSH PRN ×2 (02:20→07:05)
[2020-01-08 02:50] LABS: ALBUMIN 3.5 g/dl (3.4-5.0); BILIRUBIN,TOTAL 0.3 mg/dL (0.2-1); BLOOD UREA NITROGEN 13.7 mg/dL (7-18); CALCIUM 10.3 mg/dL (8.5-10.1); CREATININE 1.4 mg/dL (0.55-1.3); POTASSIUM 4.2 mmol/L (3.5-5.1)
[2020-01-08] MEDS: LACTATED RINGERS SOLUTION 1,000 ML IV SCH ×2 (03:56→14:26)
[2020-01-08] MEDS: PANTOPRAZOLE 40 MG TABLET PO SCH (06:52)
[2020-01-08] MEDS ORDERED: PANTOPRAZOLE 40 MG TABLET ONE (06:52)
[2020-01-08] MEDS ORDERED: morphine SULFATE 4 MG/ML VIAL ONE (07:00)
[2020-01-08] MEDS ORDERED: ENOXAPARIN NA (PORCINE) 40 MG/0.4 ML DISP.SYRIN SQ SCH (10:00)
[2020-01-08] MEDS ORDERED: PATIENT'S OWN MEDICATION (NON-FORMULARY) (Ferrous Sulfate [Ferrous Sulfate] 325 MG) PO SCH (10:00)
[2020-01-08] MEDS: DOCUSATE SODIUM 100 MG CAPSULE (FP) PO SCH ×2 (10:00→21:41)
[2020-01-08] MEDS: FERROUS SO4 325 MG TABLET (FP) PO SCH (10:00)
--- NOTE | 2020-01-08 10:04 | EKG ---
Test Reason : Blood Pressure : / mmHG Vent. Rate : 114 BPM Atrial Rate : 114 BPM P-R Int : 138 ms QRS Dur : 084 ms QT Int : 356 ms P-R-T Axes : 080 053 075 degrees QTc Int : 490 ms SINUS TACHYCARDIA RIGHT ATRIAL ENLARGEMENT NONSPECIFIC ST ABNORMALITY ABNORMAL ECG WHEN COMPARED WITH ECG OF 29-OCT-2019 20:42, NO SIGNIFICANT CHANGE WAS FOUND Confirmed by MD Carver Daniel ([id number]) on 01/08/2020 10:04:24 AM Referred By: Confirmed By:Gilberto Carver MD
[2020-01-08] MEDS ORDERED: DOCUSATE SODIUM 100 MG CAPSULE (FP) PO ONE (10:06)
[2020-01-08] MEDS ORDERED: FERROUS SO4 325 MG TABLET (FP) ONE (10:07)
--- NOTE | 2020-01-08 11:37 | EKG ---
Test Reason : Blood Pressure : / mmHG Vent. Rate : 096 BPM Atrial Rate : 096 BPM P-R Int : 144 ms QRS Dur : 088 ms QT Int : 376 ms P-R-T Axes : 074 040 071 degrees QTc Int : 475 ms NORMAL SINUS RHYTHM NORMAL ECG WHEN COMPARED WITH ECG OF 08-JAN-2020 00:30, NO SIGNIFICANT CHANGE WAS FOUND Confirmed by MD Carver Daniel ([id number]) on 01/08/2020 11:36:56 AM Referred By: Perla LEMUS Confirmed By:Gilberto Carver MD
[2020-01-08] MEDS ORDERED: oxyCODONE HCL 5 MG TABLET PO PRN ×2 (13:09→18:05)
[2020-01-08] MEDS ORDERED: morphine CARPU-JECT 2 MG/1 ML DISP.SYRIN IVPUSH PRN (13:14)
[2020-01-08] MEDS ORDERED: HEPARIN NA (PORCINE) 5,000 UNITS/ML 1ML VIAL ONE (13:19)
[2020-01-08] MEDS: HEPARIN NA (PORCINE) 5,000 UNITS/ML 1ML VIAL SQ SCH ×2 (13:34→21:42)
--- NOTE | 2020-01-08 15:26 | PN ---
Physical Exam: SUBJECTIVE: Patient seen and examined. Pt. states her pain is now 1/10 but is asking about "Oxycontin" because she is worried about pain returning. Pt. stated that her abdominal pain was on the right and that her primary tumor was on the right. Pt. states that she does not recall the name of her oncologist, but that she last had chemotherapy last Monday. Pt. stated that her last supply was sent to [facility]. Discussed with [facility] that Pt. had indeed been sent prescriptions from multiple physicians, with the last being Dr. Matty Parker ([phone]), however Pt. had already filled that prescription at an alternate pharmacy. Dr. Hou ([phone]) from the [place]? has also sent prescriptions for narcotics in October. Discussed with Heme/Onc Pt. ran out of her pain medications at home and came to the hospital for pain control. OBJECTIVE: Vital Signs Period Temp Pulse Resp BP Sys/Forrester Pulse Ox Last 24 Hr 97.8 F-98.2 F 90-110 18-20 125-160/72-97 100-100 GENERAL: The patient is awake, alert, and in no acute distress. HEAD: Normal with no signs of trauma. EYES: Sclera anicteric, conjunctiva clear. ENT: Ears normal, nares patent, oropharynx clear without exudates, moist mucous membranes. NECK: Trachea midline, full range of motion, supple. LUNGS: Breath sounds equal, clear to auscultation bilaterally, no wheezes, no crackles, no accessory muscle use. HEART: Regular rate and rhythm, S1, S2 without murmur, rub or gallop. ABDOMEN: Soft, exquisite tenderness on LLQ and LUQ, Pt. endorses milder tenderness on right side, nondistended, normoactive bowel sounds EXTREMITIES: 2+ dorsal pedal pulses, no calf tenderness warm, well-perfused, no edema. NEUROLOGICAL: Normal speech, gait not observed. PSYCH: Normal mood, normal affect. SKIN: Warm, dry, normal turgor Laboratory Results - last 24 hr 01/07/20 01/07/20 01/07/20 22:30 22:30 22:30 WBC 4.1 RBC 4.61 Hgb 11.7 Hct 36.0 D MCV 78.1 L MCH 25.4 L MCHC 32.6 RDW 25.9 H Plt Count 346 D MPV 8.4 D Absolute Neuts (auto) 3.3 Neutrophils % 81.6 Lymphocytes % 10.3 Monocytes % 6.6 Eosinophils % 0.4 Basophils % 1.1 Nucleated RBC % 0 Hypochromia 1+ Platelet Estimate Adequate Platelet Comment No clotting detected Poikilocytosis 1+ Anisocytosis 2+ Microcytosis 1+ Macrocytosis 1+ Stomatocytes Occasional Fragmented RBCs Few PT with INR 11.30 INR 0.96 PTT (Actin FS) 34.0 Sodium Cancelled Potassium Cancelled Chloride Cancelled Carbon Dioxide Cancelled Anion Gap Cancelled BUN Cancelled Creatinine Cancelled Est GFR (CKD-EPI)AfAm Cancelled Est GFR (CKD-EPI)NonAf Cancelled Random Glucose Cancelled Calcium Cancelled Total Bilirubin Cancelled AST Cancelled ALT Cancelled Alkaline Phosphatase Cancelled Total Protein Cancelled Albumin Cancelled Lipase TSH Blood Type Antibody Screen 01/07/20 01/08/20 01/08/20 22:30 01:00 01:00 WBC RBC Hgb Hct MCV MCH MCHC RDW Plt Count MPV Absolute Neuts (auto) Neutrophils % Lymphocytes % Monocytes % Eosinophils % Basophils % Nucleated RBC % Hypochromia Platelet Estimate Platelet Comment Poikilocytosis Anisocytosis Microcytosis Macrocytosis Stomatocytes Fragmented RBCs PT with INR INR PTT (Actin FS) Sodium 138 Potassium 4.2 Chloride 98 Carbon Dioxide 30 Anion Gap 10 BUN 13.7 Creatinine 1.4 H Est GFR (CKD-EPI)AfAm 48.22 Est GFR (CKD-EPI)NonAf 41.60 Random Glucose 102 Calcium 10.3 H Total Bilirubin 0.3 AST 22 ALT 12 L Alkaline Phosphatase 102 Total Protein 9.0 H Albumin 3.5 Lipase 303 TSH 1.21 Blood Type Cancelled Antibody Screen Cancelled Active Medications Generic Name Dose Route Start Last Admin Trade Name Freq PRN Reason Stop Dose Admin Docusate Sodium 100 mg 01/08/20 10:00 01/08/20 10:00 Colace - PO 100 mg BID KEYANA Administration Ferrous Sulfate 325 mg 01/08/20 10:00 01/08/20 10:00 Feosol - PO 325 mg DAILY KEYANA Administration Heparin Sodium (Porcine) 5,000 unit 01/08/20 14:00 01/08/20 13:34 Heparin - SQ 5,000 unit TID KEYANA Administration Lactated Ringer's 1,000 mls @ 100 mls/hr 01/08/20 01:30 01/08/20 14:26 Lactated Ringers Solution IV 100 mls/hr ASDIR KEYANA Administration Ondansetron HCl 4 mg 01/08/20 01:28 Zofran Injection IVPUSH Q4H PRN NAUSEA AND/OR VOMITING Oxycodone HCl 5 mg 01/08/20 13:09 01/08/20 13:33 Roxicodone - PO 5 mg Q6H PRN Administration PAIN LEVEL 7 - 10 Pantoprazole Sodium 40 mg 01/08/20 07:00 01/08/20 06:52 Protonix - PO 40 mg ACBK KEYANA Administration ASSESSMENT/PLAN: 59 year old female with a past medical history of HTN, fibroids (s/p hysterectomy), and ovarian cancer (undergoing chemotherapy in the [place], as per prior records was referred to Oncologist- Dr. Karlos Ribeiro) who presented with complaints of generalized pain in the lower abdomen and lower back which was described as severe associated with nausea. 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 She received IV dilaudid for pain control , IV pepcid and IV zofran with some relief and she was started on IVF LR. She is being admitted to observation to [facility] for pain control and IV hydration. #Severe Abdominal Pain w/ associated Nausea -Likely 2/2 to Stage 4 Ovarian CA -tachycardic and BP elevated -calcium level 10.3, stable will continue to monitor hypercalcemia -reports receives chemotherapy (last treatment was last ) -switched to Oxycodone 5mg and 10mg according to pain scale, Colace ordered -Zofran 4 mg IV prn -IVF LR @ 100cc/hr -Oncology- Dr. Morrell consulted--> follows with Dr. Spence at [facility] in the [place]. Pt. states she was diagnosed 3 months ago. -f/u CT A/P w/ contrast to further eval as being treated for Ovarian CA but has markers for Colon CA? -f/u repeat markers per Heme/Onc #Hypertension and Tachycardia uncontrolled likely elevated in the setting of pain BP is closer to normal when Pt. has pain controlled Discussed with Pharmacy that Pt. uses multiple pharmacies. Pt. as noted above does not know names of physicians. Pt. also per chart was on Toprol ER 100mg and Losartan/HCTZ- 100/25mg combination pill. Unclear if Pt. is still taking (or requiring) medications considering chronic and elevated narcotic usage. Will observe and reinstate BP meds once pain adequately controlled. #Hx. of Anemia currently Microcytosis Hgb wnl @ 11.7 c/w Iron supplemntation #DVT Prophylaxis high risk lovenox 40 mg once daily #FEN IV LR @ 100cc/hr BMP daily, replete electrolytes as needed clear liquid diet Visit type - Emergency Visit Emergency Visit: Yes ED Registration Date: 01/07/20 Care time: The patient presented to the Emergency Department on the above date and was hospitalized for further evaluation of their emergent condition. - New Patient This patient is new to me today: Yes Date on this admission: 01/08/20 - Critical Care Critical Care patient: No - Discharge Referral Referred to [facility] Med P.C.: No ATTENDING PHYSICIAN STATEMENT I saw and evaluated the patient. I reviewed the resident's note and discussed the case with the resident. I agree with the resident's findings and plan as documented. SUBJECTIVE: OBJECTIVE: ASSESSMENT AND PLAN:
--- NOTE | 2020-01-08 15:44 | CONSULT ---
Consultation: Heme-Onc REsident note REQUESTING PROVIDER: Dr. Hernandez CONSULT REQUEST: We have been asked to medically evaluate this patient for hx of ovarian cancer. 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 On that previous admission, CT AP was done which revealed multiple partially necrotic mesenteric mass lesions on the Left abd/pelvis. Biopsy of the retroperitoneal mass was done which revealed adenocarcinoma with mucinous features, consistent with colorectal primary. Since discharge 2 months ago, patient has been following up at [facility] (patient could not recall name of the doctor, but was referred to Dr. Hou on her last admission), where she reportedly received 2 cycles of chemotherapy already, with the last cycle a week ago. Patient now reports abdominal pain, worse on the Left side, accompanied by NBNB vomiting. She received IV Dilaudid and Morphine which provided some relief. Patient denies any fevers, chills, headache, chest pain, shortness of breath, cough, diarrhea, constipation, urinary symptons. She refuses to answer any more questions as she wants her pain medications first. PMHx: HTN, fibroids, st 4 adenoca? PSHx: hysterectomy Allergies:NKDA SHx:denies smoking, drinking, illicit drug use REVIEW OF SYSTEMS: CONSTITUTIONAL: Absent: fever, chills, diaphoresis, generalized weakness, malaise, loss of appetite, weight change HEENT: Absent: rhinorrhea, nasal congestion, throat pain, throat swelling, difficulty swallowing, mouth swelling, ear pain, eye pain, visual changes CARDIOVASCULAR: Absent: chest pain, syncope, palpitations, irregular heart rate, lightheadedness, peripheral edema RESPIRATORY: Absent: cough, shortness of breath, dyspnea with exertion, orthopnea, wheezing, stridor, hemoptysis GASTROINTESTINAL:abdominal pain Absent: abdominal distension, nausea, vomiting, diarrhea, constipation, melena, hematochezia GENITOURINARY: Absent: dysuria, frequency, urgency, hesitancy, hematuria, flank pain, genital pain MUSCULOSKELETAL: Absent: myalgia, arthralgia, joint swelling, back pain, neck pain SKIN: Absent: rash, itching, pallor HEMATOLOGIC/IMMUNOLOGIC: Absent: easy bleeding, easy bruising, lymphadenopathy, frequent infections ENDOCRINE: Absent: unexplained weight gain, unexplained weight loss, heat intolerance, cold intolerance NEUROLOGIC: Absent: headache, focal weakness or paresthesias, dizziness, unsteady gait, seizure, mental status changes, bladder or bowel incontinence PSYCHIATRIC: Absent: anxiety, depression, suicidal or homicidal ideation, hallucinations. PHYSICAL EXAMINATION Vital Signs - 24 hr 01/07/20 01/08/20 01/08/20 20:45 05:36 09:00 Temperature 97.8 F 97.9 F 98.1 F Pulse Rate 110 H Pulse Rate [ 98 H 105 H Apical] Respiratory 20 18 Rate Blood Pressure 157/97 Blood Pressure 125/75 148/79 [Left Arm] O2 Sat by Pulse 100 100 100 Oximetry (%) 01/08/20 01/08/20 14:27 14:50 Temperature 98.2 F Pulse Rate 92 H Pulse Rate [ 90 Apical] Respiratory 18 18 Rate Blood Pressure 160/72 Blood Pressure 159/95 [Left Arm] O2 Sat by Pulse 100 100 Oximetry (%) GENERAL: Awake, alert, and fully oriented, in no acute distress. HEAD: Normal with no signs of trauma. EYES: PERRLA, EOMI, sclera anicteric, conjunctiva clear. EARS, NOSE, THROAT: Dry mucous membranes. NECK: Normal range of motion, supple LUNGS: Breath sounds equal, clear to auscultation bilaterally. HEART: Regular rate and rhythm, normal S1 and S2 ABDOMEN: Soft, +LUQ/LLQ tenderness, not distended, normoactive bowel sounds MUSCULOSKELETAL: Normal range of motion at all joints. LOWER EXTREMITIES: 2+ pulses, warm, well-perfused. No peripheral edema. NEUROLOGICAL: Cranial nerves II-XII intact. Normal speech. PSYCHIATRIC: Cooperative. Good eye contact. SKIN: Warm, dry, normal turgor Laboratory Results - last 24 hr 01/07/20 01/07/20 01/07/20 22:30 22:30 22:30 WBC 4.1 RBC 4.61 Hgb 11.7 Hct 36.0 D MCV 78.1 L MCH 25.4 L MCHC 32.6 RDW 25.9 H Plt Count 346 D MPV 8.4 D Absolute Neuts (auto) 3.3 Neutrophils % 81.6 Lymphocytes % 10.3 Monocytes % 6.6 Eosinophils % 0.4 Basophils % 1.1 Nucleated RBC % 0 Hypochromia 1+ Platelet Estimate Adequate Platelet Comment No clotting detected Poikilocytosis 1+ Anisocytosis 2+ Microcytosis 1+ Macrocytosis 1+ Stomatocytes Occasional Fragmented RBCs Few PT with INR 11.30 INR 0.96 PTT (Actin FS) 34.0 Sodium Cancelled Potassium Cancelled Chloride Cancelled Carbon Dioxide Cancelled Anion Gap Cancelled BUN Cancelled Creatinine Cancelled Est GFR (CKD-EPI)AfAm Cancelled Est GFR (CKD-EPI)NonAf Cancelled Random Glucose Cancelled Calcium Cancelled Total Bilirubin Cancelled AST Cancelled ALT Cancelled Alkaline Phosphatase Cancelled Total Protein Cancelled Albumin Cancelled Lipase TSH Blood Type Antibody Screen 01/07/20 01/08/20 01/08/20 22:30 01:00 01:00 WBC RBC Hgb Hct MCV MCH MCHC RDW Plt Count MPV Absolute Neuts (auto) Neutrophils % Lymphocytes % Monocytes % Eosinophils % Basophils % Nucleated RBC % Hypochromia Platelet Estimate Platelet Comment Poikilocytosis Anisocytosis Microcytosis Macrocytosis Stomatocytes Fragmented RBCs PT with INR INR PTT (Actin FS) Sodium 138 Potassium 4.2 Chloride 98 Carbon Dioxide 30 Anion Gap 10 BUN 13.7 Creatinine 1.4 H Est GFR (CKD-EPI)AfAm 48.22 Est GFR (CKD-EPI)NonAf 41.60 Random Glucose 102 Calcium 10.3 H Total Bilirubin 0.3 AST 22 ALT 12 L Alkaline Phosphatase 102 Total Protein 9.0 H Albumin 3.5 Lipase 303 TSH 1.21 Blood Type Cancelled Antibody Screen Cancelled Active Medications Generic Name Dose Route Start Last Admin Trade Name Freq PRN Reason Stop Dose Admin Docusate Sodium 100 mg 01/08/20 10:00 01/08/20 10:00 Colace - PO 100 mg BID KEYANA Administration Ferrous Sulfate 325 mg 01/08/20 10:00 01/08/20 10:00 Feosol - PO 325 mg DAILY KEYANA Administration Heparin Sodium (Porcine) 5,000 unit 01/08/20 14:00 01/08/20 13:34 Heparin - SQ 5,000 unit TID KEYANA Administration Lactated Ringer's 1,000 mls @ 100 mls/hr 01/08/20 01:30 01/08/20 14:26 Lactated Ringers Solution IV 100 mls/hr ASDIR KEYANA Administration Ondansetron HCl 4 mg 01/08/20 01:28 Zofran Injection IVPUSH Q4H PRN NAUSEA AND/OR VOMITING Oxycodone HCl 5 mg 01/08/20 13:09 01/08/20 13:33 Roxicodone - PO 5 mg Q6H PRN Administration PAIN LEVEL 7 - 10 Pantoprazole Sodium 40 mg 01/08/20 07:00 01/08/20 06:52 Protonix - PO 40 mg ACBK KEYANA Administration ASSESSMENT/PLAN: Patient is a 59 year old female with past medical history of HTN, Fibroids (s/p hysterectomy), and 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 #Adenocarcinoma of unknown primary -follows up with Dr. Matty Parker at [facility] where she already received 2 cycles of Carboplatin/Paclitaxel -Retroperitoneal mass biopsy done in 10/2019: revealed adenocarcinoma with mucinous features, consistent with colorectal primary -Colonoscopy done in October was unremarkable -Will repeat CEA, CA-125 markers -consider repeat CT scan to evaluate abdominal pain Dispo: We will continue to follow the patient. Thank you for this consultative opportunity. Visit type - Emergency Visit Emergency Visit: Yes ED Registration Date: 01/07/20 Care time: The patient presented to the Emergency Department on the above date and was hospitalized for further evaluation of their emergent condition. - New Patient This patient is new to me today: Yes Date on this admission: 01/08/20 - Critical Care Critical Care patient: No ATTENDING PHYSICIAN STATEMENT I saw and evaluated the patient. I reviewed the resident's note and discussed the case with the resident. I agree with the resident's findings and plan as documented. SUBJECTIVE: OBJECTIVE: ASSESSMENT AND PLAN:
[2020-01-08] MEDS: morphine SULFATE 4 MG/ML VIAL IVPUSH ONE (18:45)
[2020-01-08] MEDS ORDERED: ONDANSETRON *ODT* 4 MG TABLET SL PRN (20:06)
[2020-01-08] MEDS: oxyCODONE HCL 5 MG TABLET PO PRN (20:30)
[2020-01-08] MEDS ORDERED: oxyCODONE HCL 5 MG TABLET PO ONE (21:26)
[2020-01-09] MEDS: morphine SULFATE 4 MG/ML VIAL IVPUSH ONE (00:30)
[2020-01-09] MEDS ORDERED: morphine SULFATE 4 MG/ML VIAL IVPUSH ONE ×4 (00:30→18:00)
[2020-01-09] MEDS: LACTATED RINGERS SOLUTION 1,000 ML IV SCH (05:15)
[2020-01-09] MEDS: HEPARIN NA (PORCINE) 5,000 UNITS/ML 1ML VIAL SQ SCH ×2 (05:42→13:43)
[2020-01-09] MEDS: oxyCODONE HCL 5 MG TABLET PO PRN (05:42)
[2020-01-09] MEDS: PANTOPRAZOLE 40 MG TABLET PO SCH (06:59)
[2020-01-09 07:04] LABS: HEMATOCRIT 27.8 % (32.4-45.2); MCH 24.9 pg (25.7-33.7); MCHC 32.2 g/dl (32.0-36.0); MEAN CELL VOLUME 77.4 fl (80-96); MEAN PLT VOLUME 8.2 fl (7.5-11.1); PLATELET COUNT 264 K/MM3 (134-434); RDW 25.6 % (11.6-15.6); WHITE BLOOD COUNT 2.6 K/mm3 (4.0-10.0)
[2020-01-09 08:33] LABS: ALBUMIN 2.9 g/dl (3.4-5.0); BILIRUBIN,TOTAL 0.3 mg/dL (0.2-1); BLOOD UREA NITROGEN 13.4 mg/dL (7-18); CREATININE 1.2 mg/dL (0.55-1.3); TOT PROT 7.3 g/dl (6.4-8.2)
[2020-01-09] MEDS: FERROUS SO4 325 MG TABLET (FP) PO SCH (09:02)
[2020-01-09] MEDS: DOCUSATE SODIUM 100 MG CAPSULE (FP) PO SCH (09:02)
[2020-01-09 13:26] LABS: EPI CELLS >36 /uL (0-25.1); HYALINE CASTS 1 /uL (0-3.1); URINE APPEARANCE CLEAR; URINE BACTERIA 2224 /uL (0-1359); URINE BILIRUBIN NEGATIVE (NEGATIVE); URINE COLOR YELLOW; URINE GLUCOSE (UA) NEGATIVE (NEGATIVE); URINE KETONE NEGATIVE (NEGATIVE); URINE LEUK ESTERASE NEGATIVE (NEGATIVE); URINE NITRITE NEGATIVE (NEGATIVE); URINE PROTEIN 1+ (NEGATIVE); URINE RBC 7 /uL (0-23.9)
--- NOTE | 2020-01-09 14:11 | PN ---
Teaching Attending Note Name of Resident: Haylee Patten ATTENDING PHYSICIAN STATEMENT I saw and evaluated the patient. I reviewed the resident's note and discussed the case with the resident. I agree with the resident's findings and plan as documented. ASSESSMENT AND PLAN: Patient is a 59 year old female with past medical history of HTN, Fibroids (s/p hysterectomy), and Stage 4 adenocarcinoma considered [employer] primary based on imaging, started on carbo/taxol, under treatment with Dr. Neel hood at [facility]. She was admitted to the hospital for fatigue/ nausea/ diarrhea/ weakness On IV fluids/antiemetics and protonix Repeating tumor markers Monitor clinical course and repeat imaging as necessary will follow
--- NOTE | 2020-01-09 15:27 | PN ---
Progress Note (short form) - Note Progress Note: Vascular Surgery: Called to see the for the a sacral wound and left breast wound. The patient states that she has had the ulcer for approximatley 1 month and has been caring for it by placing dry gauze on the wound daily. She changes it about 2 times per day and does notice some drainage to the wound. The wound has been seen by some of her medical doctors at [facility]. There is also a left breast wound which isn't drainaing and she is unclear when it started. The patient is able to ambulate and sit in chair. She has a recent diagnosis of ovarian cancer and is receiving chemotherapy. She developed pain in her lower abdomen with associated nausea and emesis. The patient gives limited information today. PMHX: htn, ovarian cancer PSHX: hysterectomy Vital Signs Period Temp Pulse Resp BP Sys/Forrester Pulse Ox Last 24 Hr 98.2 F-98.9 F 82-99 18-20 134-171/81-99 94-100 GEN: A&0x3, NAD, cachetic appearing Left breast: 2 x 3 cm supferfical wound with fibrinous exudate at 6 o'clock position inframammary fold. No surrounding erythema or induration Sacrum: 2 x 2cm ulcer with clean base and small opening/bone palpable no tracking. No surrounding erythema or drainage noted. CBC, BMP 01/09/20 06:10 01/09/20 06:10 A/P: 59 yo female with ovarian cancer on chemotherapy No need for any surgical debridement of the wounds. Continue alleyvn to sacral area. Frequent positioning to avoid pressure to sacral area(pt very cachetic) Nutritional supplement with ensure, antiemetics for nasusea and pain medications as per the medical team Left breast: santyl daily with wet to dry gauze D/w Dr. Lauren
[2020-01-09] MEDS ORDERED: COLLAGENASE CLOSTRIDIUM HIST. 30 GRAMS TUBE TP SCH (15:47)
[2020-01-09 16:00] LABS: URINE WBC 82.7 /uL (0-25.8)
[2020-01-09 16:03] VITALS: BMI 20.4
--- NOTE | 2020-01-09 16:39 | DS ---
Physical Exam: SUBJECTIVE: Patient seen and examined. No acute events overnight. OBJECTIVE: Vital Signs Period Temp Pulse Resp BP Sys/Forrester Pulse Ox Last 24 Hr 98.2 F-98.9 F 82-99 18-20 134-171/81-99 94-100 PHYSICAL EXAM GENERAL: The patient is awake, alert, and in no acute distress. HEAD: Normal with no signs of trauma. EYES: Sclera anicteric, conjunctiva clear. ENT: Ears normal, nares patent, oropharynx clear without exudates, moist mucous membranes. NECK: Trachea midline, full range of motion, supple. LUNGS: Breath sounds equal, clear to auscultation bilaterally, no wheezes, no crackles, no accessory muscle use. HEART: Regular rate and rhythm, S1, S2 without murmur, rub or gallop. ABDOMEN: Soft, exquisite tenderness on LLQ and LUQ, Pt. endorses milder tenderness on right side, nondistended, normoactive bowel sounds EXTREMITIES: 2+ dorsal pedal pulses, no calf tenderness warm, well-perfused, no edema. NEUROLOGICAL: Normal speech, gait not observed. PSYCH: Normal mood, normal affect. SKIN: Warm, dry, normal turgor LABS Laboratory Results - last 24 hr 01/07/20 01/09/20 01/09/20 23:24 06:10 06:10 WBC 2.6 L RBC 3.60 Hgb 9.0 L Hct 27.8 L D MCV 77.4 L MCH 24.9 L MCHC 32.2 RDW 25.6 H Plt Count 264 D MPV 8.2 Sodium 135 L Potassium 4.0 Chloride 102 Carbon Dioxide 23 Anion Gap 11 BUN 13.4 Creatinine 1.2 Est GFR (CKD-EPI)AfAm 58.10 Est GFR (CKD-EPI)NonAf 50.13 Random Glucose 73 L Calcium 9.0 Total Bilirubin 0.3 AST 19 ALT 12 L Alkaline Phosphatase 80 Total Protein 7.3 Albumin 2.9 L Urine Color Urine Appearance Urine pH Ur Specific [place] Urine Protein Urine Glucose (UA) Urine Ketones Urine Blood Urine Nitrite Urine Bilirubin Urine Urobilinogen Ur Leukocyte Esterase Urine WBC (Auto) Urine RBC (Auto) Urine Casts (Auto) U Epithel Cells (Auto) U Sm Round Cell (Auto) Urine Bacteria (Auto) COVID-19 (BEN) Not detected 01/09/20 12:20 WBC RBC Hgb Hct MCV MCH MCHC RDW Plt Count MPV Sodium Potassium Chloride Carbon Dioxide Anion Gap BUN Creatinine Est GFR (CKD-EPI)AfAm Est GFR (CKD-EPI)NonAf Random Glucose Calcium Total Bilirubin AST ALT Alkaline Phosphatase Total Protein Albumin Urine Color Yellow Urine Appearance Clear Urine pH 8.0 D Ur Specific [place] 1.014 Urine Protein 1+ H Urine Glucose (UA) Negative Urine Ketones Negative Urine Blood Negative Urine Nitrite Negative Urine Bilirubin Negative Urine Urobilinogen 1.0 Ur Leukocyte Esterase Negative Urine WBC (Auto) 82.7 Urine RBC (Auto) 7 Urine Casts (Auto) 1 U Epithel Cells (Auto) >36 U Sm Round Cell (Auto) Non seen Urine Bacteria (Auto) 2224 COVID-19 (BEN) HOSPITAL COURSE: Date of Admission:01/07/20 Date of Discharge: 01/09/20 59 year old female with a past medical history of HTN, fibroids (s/p hysterectomy), and ovarian cancer (undergoing chemotherapy in the [place], as per prior records was referred to Oncologist- Dr. Karlos Ribeiro) who presented with complaints of generalized pain in the lower abdomen and lower back which was described as severe associated with nausea. 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 She received IV dilaudid for pain control , IV pepcid and IV zofran with some relief and she was started on IVF LR. She is being admitted to observation to [facility] for pain control and IV hydration. CT Abd. /Pelvis consistent with metastatic disesase. Pt. encouraged to follow up with her Oncologist and Pain management for further management of her pain medications. Hospital follow up as detailed below. Minutes to complete discharge: 25 Discharge Summary Problems reviewed: Yes Reason For Visit: PAIN, METASTATIC MALIGNANT NEOPLASM Current Active Problems Metastatic cancer (Acute) Pain (Acute) Condition: Stable - Instructions Diet, Activity, Other Instructions: You came in for abdominal pain. We treated you with IV and PO pain medications. We contacted you oncologist at [facility] and they are prescribing your pain medications. Please continue to dress your ulcer on your lower back and keep it clean. If you notice signs of infection(fever, chills, increased drainage) please got to the ER immediately Please apply Allevyn dressings to your lower back every day. Continue to switch positions frquently to decrease pressure to the area. Pleas apply Santyl dressings to your wound under your left breast with wet to dry gauze. Please follow up with your oncologist at [facility]. We discovered that Dr. Matty Parker and Dr. Hou were your prescribing doctors. Please follow up with at [facility] for further management of your wounds. Please go to the hospital if you are having any concerning symptoms. No need for any surgical debridement of the wounds. Continue alleyvn to sacral area. Frequent positioning to avoid pressure to sacral area(pt very cachetic) Nutritional supplement with ensure, antiemetics for nasusea and pain medications as per the medical team Left breast: santyl daily with wet to dry gauze Referrals: ON STAFF,NOT [Non Staff, Medical] - 1 Week Ariel Lauren DO [Staff Physician] - 1 Week Disposition: HOME - Home Medications Comprehensive Discharge Medication List: Ambulatory Orders Docusate Sodium [Colace] 100 mg PO BID 30 Days #60 capsule 11/05/19 Ferrous Sulfate 325 mg PO DAILY #30 tablet 11/05/19 Pantoprazole Sodium [Protonix] 40 mg PO DAILY #30 tablet. 11/05/19 Collagenase Clostridium Hist. [Santyl -] 1 applic TP DAILY #30 tube 01/09/20 FENTANYL 100mcg PATCH [DURAGESIC 100mcg PATCH -] 1 patch TP Q72H 01/09/20 Foam Bandage [Allevyn] 1 each TP DAILY #30 bandage 01/09/20 Gauze Bandage [Gauze Dressing] 1 each TP DAILY #60 bandage 01/09/20 HYDROmorphone [Dilaudid -] 2 mg PO Q4H 01/09/20 This patient is new to me today: Yes Date on this admission: 01/07/20 Emergency Visit: Yes ED Registration Date: 01/07/20 Care time: The patient presented to the Emergency Department on the above date and was hospitalized for further evaluation of their emergent condition. Critical Care patient: No - Discharge Referral Referred to [facility] No ATTENDING PHYSICIAN STATEMENT I saw and evaluated the patient. I reviewed the resident's note and discussed the case with the resident. I agree with the resident's findings and plan as documented. SUBJECTIVE: OBJECTIVE: ASSESSMENT AND PLAN:
[2020-01-09] MEDS ORDERED: AMINO ACIDS/PROTEIN HYDROLYS 30 ML LIQUID.PKT PO SCH (17:30)
[2020-01-09 18:06] VITALS: BP 153/85; PULSE 89; TEMP 98.6
[2020-01-10 08:07] LABS: CARCINOEMBRYONIC ANTIGEN 6.1 ng/mL (0.0-4.7)
== END 2020-01-09 18:42 | disposition home or self-care (01) ==
LOC: JER 20:34 → JERBED 22:26 → INTOOBSV 22:26 → J7W 01-08 14:41
PROVIDERS: ADMIT Internal Medicine
PROC: 3E023GC Introduction of Other Therapeutic Substance into Muscle, Percutaneous Approach (ICD-10-PCS; principal; 2020-01-07)
PROC: 3E033GC Introduction of Other Therapeutic Substance into Peripheral Vein, Percutaneous Approach (ICD-10-PCS; 2020-01-07)
PROC: 3E033NZ Introduction of Analgesics, Hypnotics, Sedatives into Peripheral Vein, Percutaneous Approach (ICD-10-PCS; 2020-01-07)
PROC: 3E0337Z Introduction of Electrolytic and Water Balance Substance into Peripheral Vein, Percutaneous Approach (ICD-10-PCS; 2020-01-07)
DX: G89.3 Neoplasm related pain (acute) (chronic) (principal); C56.9 Malignant neoplasm of unspecified ovary; R11.2 Nausea with vomiting, unspecified; R10.30 Lower abdominal pain, unspecified; M54.5 Low back pain; D64.9 Anemia, unspecified; K21.9 Gastro-esophageal reflux disease without esophagitis; I10 Essential (primary) hypertension; F17.210 Nicotine dependence, cigarettes, uncomplicated; D25.9 Leiomyoma of uterus, unspecified; Z29.9 Encounter for prophylactic measures, unspecified
CPT/HCPCS: 36415; 71045-TC-FY; 74177-TC; 80053; 81003; 82378; 83690; 84443; 85025; 85027; 85610; 85730; 86301; 86304; 87086; 93005; 93010; 96361; 96365; 96372; 96375; 96376; 99285-25; G0378; J1644; Q0162; Q9967; U0003

== ENCOUNTER → 2020-01-21 | Emergency (ER) | payer OTHER ==
[~2020-01-21] MED LIST: DIPHTH,PERTUSS(ACELL),TET 0.5 ML DISP.SYRIN IM ONE; LIDOCAINE HCL 2% (20ML MULTI-DOSE VIAL) ONE; LIDOCAINE HCL 2% (50ML VIAL) SQ ONE; morphine CARPU-JECT 4 MG/1 ML DISP.SYRIN IVPUSH ONE; morphine SULFATE 4 MG/ML VIAL IVPUSH ONE; morphine SULFATE 4 MG/ML VIAL ONE
[2020-01-21 15:28] VITALS: TEMP 98; BMI 17.2
--- NOTE | 2020-01-21 16:57 | PDOC ---
Attending Attestation - Resident Resident Name: Parish Mo - ED Attending Attestation I have performed the following: I have examined & evaluated the patient, The case was reviewed & discussed with the resident, I agree w/resident's findings & plan - HPI HPI: 01/21/20 17:41 59 year old female with a past medical history of HTN, fibroids (s/p hysterectomy), and ovarian cancer presenting with fall. complaining of left wrist pain, abrasions to her head and left eyebrow. - Physicial Exam PE: 01/21/20 16:52 Agree with the resident's HPI and PE as documented in the electronic medical record. malaised appearing, older than stated age, cachectic. +left lateral eyebrow 1cm linear laceration, +occipital superficial laceration. EOMI, PERRL, nl conjunctiva, anicteric; neck supple. lungs clear, RRR, abdomen soft nontender. No rebound, no guarding. Back nontender. LOTT x4, no focal neuro deficits. No peripheral edema. normal color for ethnicity, WWP. +left wrist TTP and diffuse swelling, deformity. 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 +left wrist abrasion/superficial laceration on ulnar side. 01/21/20 16:55 01/21/20 17:42 - Medical Decision Making 01/21/20 16:54 Vital Signs Temp Pulse Resp BP Pulse Ox 98 F 95 H 18 111/74 99 01/21/20 14:50 01/21/20 14:50 01/21/20 14:50 01/21/20 14:50 01/21/20 14:50 ddx. head bleed, ICH, colles fx, dislocation, syncope, intracranial mass/lesion, infection, electrolyte/metabolic derangements. vitals reviewed wnl fluctuating mental status, alert, oriented to person time and place slow with responses NVI, +palp deformity to the left wrist, concern for fx. xray left forearm/wrist/hand with +acute left colles fx with dorsal displacement. CT head and c spine - there is mild hyperdensity of gyri in the left frontal lobe, extend to frontoparietal junction, ?contusion vs hemorrhage vs SAH - cannot be excluded. c spine neg for acute fx, degenerative changes noted. boostrix given analgesia provided. colles fx reduced at bedside with hematoma block with 1% lidocaine, post red x ray with improved alignment. NVI pre and post procedure. see procedure documentation in resident note splinted in sugar tong for immobilization left eyebrow laceration also repaired by resident, see note - 3 sutures placed 01/21/20 17:42 transfer to [facility] for higher level of care, NSG/Trauma eval, given the nature of her injuries and ?head bleed vs contusion in the setting of trauma. accepted by NSG Dr Nick. 01/21/20 17:44 01/21/20 18:06 01/21/20 18:32 Heart Score/ECG Review #1 ECG reviewed & interpreted by me at: 18:00 General ECG Interpretation: Sinus Rhythm, Normal Intervals 01/21/20 18:05 sinus tachycardia 104 bpm, qtc prolongation at 544ms, nonspecific T wave abnormalities. Discharge - Discharge Information Problems reviewed: Yes Clinical Impression/Diagnosis: Occipital scalp laceration, Colles' fracture Wrist fracture Qualifiers: Encounter type: initial encounter Fracture type: closed Laterality: left Qualified Code(s): S62.102A - Fracture of unspecified carpal bone, left wrist, initial encounter for closed fracture Fall Qualifiers: Encounter type: initial encounter Qualified Code(s): W19.XXXA - Unspecified fall, initial encounter Eyebrow laceration Qualifiers: Encounter type: initial encounter Laterality: left Qualified Code(s): S01.112A - Laceration without foreign body of left eyelid and periocular area, initial encounter Condition: Fair Disposition: TRANSFER ACUTE CARE/OTHER HOSP - Follow up/Referral - Patient Discharge Instructions - Post Discharge Activity
--- NOTE | 2020-01-21 17:37 | PDOC ---
History of Present Illness - General Chief Complaint: Injury Stated Complaint: FALL Time Seen by Provider: 01/21/20 15:30 History Source: Patient Exam Limitations: No Limitations - History of Present Illness Initial Comments: 01/21/20 19:11 59 yo female pmh HTN, fibroids (s/p hysterectomy), and ovarian cancer presents to the ED s/p fall with L wrist deformity and Lac to forehead and posterior head with noted new mental status change. P states she feel because her Equilibrium was off Complains of pain to the left distal forearm. Denies weakness or sensory change s. Pt denies MCALLISTER, changes in vision, N/V, neck pain midline, CP, SOB, abdominal pain Past History - Medical History Allergies/Adverse Reactions: Allergies Allergy/AdvReac Type Severity Reaction Status Date / Time No Known Allergies Allergy Verified 01/21/20 15:21 Home Medications: Ambulatory Orders Docusate Sodium [Colace] 100 mg PO BID 30 Days #60 capsule 11/05/19 Ferrous Sulfate 325 mg PO DAILY #30 tablet 11/05/19 Pantoprazole Sodium [Protonix] 40 mg PO DAILY #30 tablet. 11/05/19 Collagenase Clostridium Hist. [Santyl -] 1 applic TP DAILY #30 tube 01/09/20 FENTANYL 100mcg PATCH [DURAGESIC 100mcg PATCH -] 1 patch TP Q72H 01/09/20 Foam Bandage [Allevyn] 1 each TP DAILY #30 bandage 01/09/20 Gauze Bandage [Gauze Dressing] 1 each TP DAILY #60 bandage 01/09/20 HYDROmorphone [Dilaudid -] 2 mg PO Q4H 01/09/20 Anemia: Yes Asthma: No Cancer: No Cardiac Disorders: No CVA: No COPD: No CHF: No Dementia: No Diabetes: No GI Disorders: Yes (acid reflux) Disorders: No HTN: Yes Hypercholesterolemia: No Kidney Stones: No Liver Disease: No Seizures: No Thyroid Disease: No - Surgical History Abdominal Surgery: Yes (partial hysterectomy) Appendectomy: No Cardiac Surgery: No Cholecystectomy: No Lung Surgery: No Neurologic Surgery: No Orthopedic Surgery: No - Reproductive History Is Patient Now?: No PID: No - Psycho-Social/Smoking History Smoking History: Unknown if ever smoked Have you smoked in the past 12 months: Yes Number of Cigarettes Smoked Daily: 6 Cigars Per Day: 0 'Breaking Loose' booklet given: 01/08/20 - Substance Abuse Hx (Audit-C & DAST Scrn) How often the patient has a drink containing alcohol: Never Score: In Men: 4 or > Positive; In Women: 3 or > Positive: 0 Screen Result (Pos requires Nsg. Audit-10AR): Negative In the last yr the pt used illegal drug/Rx for NonMed reason: No Score: Yes response is considered Positive: 0 Screen Result (Positive result requires Nsg. DAST-10): Negative Review of Systems - Review of Systems Constitutional: Yes: See HPI HEENTM: Yes: See HPI Respiratory: Yes: See HPI Cardiac (ROS): Yes: See HPI ABD/GI: Yes: See HPI : Yes: See HPI Musculoskeletal: Yes: See HPI Integumentary: Yes: See HPI Neurological: Yes: See HPI *Physical Exam - Vital Signs Last Vital Signs Temp Pulse Resp BP Pulse Ox 98 F 95 H 18 111/74 99 01/21/20 14:50 01/21/20 14:50 01/21/20 14:50 01/21/20 14:50 01/21/20 14:50 - Physical Exam General Appearance: Yes: Nourished, Appropriately Dressed. No: Apparent Distress HEENT: positive: EOMI, EDUIN Neck: positive: Supple. negative: Carotid bruit Respiratory/Chest: positive: Lungs Clear, Normal Breath Sounds. negative: Respiratory Distress Cardiovascular: positive: Regular Rhythm, Regular Rate, S1, S2. negative: Edema, JVD, Murmur Vascular Pulses: Dorsalis-Pedis (R): 4+, Doralis-Pedis (L): 4+ Gastrointestinal/Abdominal: positive: Flat, Soft. negative: Pulsatile Mass Musculoskeletal: negative: CVA Tenderness Extremity: positive: Normal Capillary Refill, Other (distal colles fracture with deformity, neuro vascularly intact) Integumentary: positive: Normal Color, Dry, Warm, Other (lac to right supraorbital ridge and abrasion to posterior head. See procedure note. No sutures reqired for posterior abrasion) Neurologic: positive: dough cutter II-XII NML intact, Alert, Normal Mood/Affect, Normal Response, Motor Strength 5/5. negative: Fully Oriented (AOX2 baseline 3 ) Procedures - Joint Reduction Left Joint Reduction Site: left: Colles' Fracture Anesthetic: 2% Lidocaine Amount (mL): 10 Procedure: Colles Reduction Post-Procedure NV Exam: normal Complications: No Post Joint Reduction Film: joint reduced Splint: Yes - Laceration/Wound Repair Left Anterior Face Wound Length: to 2.5 cm Wound Explored: clean, no foreign body present Wound's Depth, Shape: superficial, linear Irrigated w/ Saline: Yes Betadine Prep: Yes Anesthesia: 1% Lidocaine Amount of Anesthetic (ccs): 3 Wound Debrided: minimal Wound Repaired With: Sutures Suture Size/Type: 6:0 Number of Sutures: 3 Layer Closure: No Sterile Dressing Applied: Yes ED Treatment Course - LABORATORY CBC & Chemistry Diagram: 01/21/20 17:40 01/21/20 17:40 - RADIOLOGY Radiology Studies Ordered: Category Date Time Status CERVICAL SPINE CT W/O CONTR [CT] Stat CT Scan 01/21/20 16:[address] WITHOUT CONTRAST [CT] Stat CT Scan 01/21/20 16:00 Completed CHEST PA & LAT [RAD] Stat Radiology 01/21/20 15:38 Taken ELBOW-LEFT [RAD] Stat Radiology 01/21/20 15:38 Taken FOREARM- LEFT [RAD] Stat Radiology 01/21/20 15:38 Taken WRIST W/HAND-LEFT* [RAD] Stat Radiology 01/21/20 15:38 Taken WRIST-LEFT [RAD] Stat Radiology 01/21/20 17:36 Ordered - Medications Given in the ED: ED Medications Discontinued Medications Generic Name Dose Route Start Last Admin Trade Name Freq PRN Reason Stop Dose Admin Morphine Sulfate 4 mg 01/21/20 15:50 01/21/20 16:40 Morphine Sulfate IVPUSH 01/21/20 15:51 4 mg ONCE ONE Administration Medical Decision Making - Medical Decision Making 01/21/20 17:59 59 yo female pmh HTN, fibroids (s/p hysterectomy), and ovarian cancer presents to the ED s/p fall with L wrist deformity and Lac to forehead and posterior head with noted new mental status change. P states she feel because her Equilibrium was off Complains of pain to the left distal forearm. Denies weakness or sensory changes. Pt denies MCALLISTER, changes in vision, N/V, neck pain midline, CP, SOB, abdominal pain Noted contusion vs cerebral hemorrhage on CT. Due to trauma leading to bleed and distal radial and ulnar fracture, pt requires transfer to trauma center Accepting Dr. Nick in the ED, declines report to be given by phone and Transfer team states Trauma is alerted and do not require direct Doctor to Doctor report ETA reported 6 30 pm 3 sutures placed to left supraorbital ridge. Cleaned Tetnas given Left wrist reduced, hematoma block done, toletated procedure well. Neurovascularly intact prior to and after reduction Post reduction film shows improvement on angulation CT sent EMS arrive to ED 6 28 pm Pt departed ED at 5 50 Discharge - Discharge Information Problems reviewed: Yes Clinical Impression/Diagnosis: Wrist fracture, Fall, Eyebrow laceration, Occipital scalp laceration, Colles' fracture Disposition: TRANSFER ACUTE CARE/OTHER HOSP - Follow up/Referral - Patient Discharge Instructions - Post Discharge Activity
[2020-01-21 18:00] LABS: BASO % 0.3 % (0-2.0); EOS % 0.1 % (0-4.5); HEMATOCRIT 36.7 % (32.4-45.2); HEMOGLOBIN 11.9 GM/dL (10.7-15.3); LYMPH % 4.6 % (8-40); MCH 26.1 pg (25.7-33.7); MCHC 32.5 g/dl (32.0-36.0); MEAN CELL VOLUME 80.4 fl (80-96); MEAN PLT VOLUME 8.6 fl (7.5-11.1); MONO % 4.4 % (3.8-10.2); NEUT % 90.6 % (42.8-82.8); PLATELET COUNT 222 K/MM3 (134-434); RBC 4.57 M/mm3 (3.60-5.2); RDW 24.8 % (11.6-15.6); WHITE BLOOD COUNT 5.1 K/mm3 (4.0-10.0)
[2020-01-21 18:09] LABS: INR 1.05 (0.83-1.09); PROTHROMBIN TIME (PATIENT) 12.4 SEC (9.7-13.0)
[2020-01-21 18:28] LABS: ALBUMIN 4.1 g/dl (3.4-5.0); ALK PHOS 108 U/L (45-117); ANION GAP 15 MMOL/L (8-16); BILIRUBIN,TOTAL 0.8 mg/dL (0.2-1); CALCIUM 10.4 mg/dL (8.5-10.1); CHLORIDE 67 mmol/L (98-107); CO2 42 mmol/L (21-32); CREATININE 4.3 mg/dL (0.55-1.3); GLUCOSE,RANDOM 88 mg/dL (74-106); POTASSIUM 3.3 mmol/L (3.5-5.1); SGOT/AST 29 U/L (15-37); SGPT/ALT 12 U/L (13-61); SODIUM 123 mmol/L (136-145)
[2020-01-21 18:44] LABS: BLOOD UREA NITROGEN 71.4 mg/dL (7-18); TOT PROT 10.3 g/dl (6.4-8.2)
[2020-01-21 19:07] VITALS: BP 158/101; PULSE 98
[2020-01-21 23:08] LABS: ANISOCYTOSIS 2+
--- NOTE | 2020-01-22 12:58 | EKG ---
Test Reason : Blood Pressure : / mmHG Vent. Rate : 104 BPM Atrial Rate : 104 BPM P-R Int : 152 ms QRS Dur : 088 ms QT Int : 414 ms P-R-T Axes : 082 053 086 degrees QTc Int : 544 ms SINUS TACHYCARDIA BIATRIAL ENLARGEMENT NONSPECIFIC ST AND T WAVE ABNORMALITY PROLONGED QT ABNORMAL ECG WHEN COMPARED WITH ECG OF 08-JAN-2020 11:17, T WAVE INVERSION NOW EVIDENT IN ANTERIOR LEADS QT HAS LENGTHENED Confirmed by MD MAGDALENE, STIVEN ([id number]) on 01/22/2020 12:57:50 PM Referred By: Confirmed By:STIVEN DEL CASTILLO MD
== END | disposition short-term general hospital (02) ==
LOC: JER 14:40
PROC: 0PSHXZZ Reposition Right Radius, External Approach (ICD-10-PCS; principal; 2020-01-21)
PROC: 0CQ03ZZ Repair Upper Lip, Percutaneous Approach (ICD-10-PCS; 2020-01-21)
PROC: 3E03329 Introduction of Other Anti-infective into Peripheral Vein, Percutaneous Approach (ICD-10-PCS; 2020-01-21)
PROC: 3E0234Z Introduction of Serum, Toxoid and Vaccine into Muscle, Percutaneous Approach (ICD-10-PCS; 2020-01-21)
DX: S62.102A Fracture of unspecified carpal bone, left wrist, initial encounter for closed fracture (principal); S01.112A Laceration without foreign body of left eyelid and periocular area, initial encounter; W19.XXXA Unspecified fall, initial encounter
CPT/HCPCS: 36415; 70450-TC; 71046-TC-FY; 72125-TC; 73070-TC-LT-FY; 73090-TC-LT-FY; 73110-TC-LT-FY; 73130-TC-LT-FY; 80053; 82550; 82553; 84484; 85025; 85610; 90715; 93005; 93010; 99285-25